=== PATIENT | male | born 1995 | race Caucasian/White ===

== ENCOUNTER 2019-02-06 07:57 | Emergency (ER) | payer OTHER ==
[~2019-02-06] VITALS: Ht 172.7 cm; Wt 78.5 kg
[2019-02-06] MEDS ORDERED: ZOLOFT25 MG PO (08:06)
[2019-02-06 08:26] LABS: HEMATOCRIT 45.5 % (42.0-52.0); HEMOGLOBIN 16.2 gm/dL (14.0-18.0); MCHC 35.6 g/dL (28.0-37.0); MPV 9.7 fl. (7.2-11.1); NUCLEATED RBCS 0 /100WBC; PLATELET COUNT* 232 thou/uL (150-400); RBC 5.22 mil/uL (4.50-6.00); RDW-CV 12.8 % (10.5-14.5)
[2019-02-06 08:37] LABS: CALCIUM 9.3 mg/dL (8.5-10.1); CREATININE 1.1 mg/dL (0.6-1.3); POTASSIUM 3.1 mmol/L (3.5-5.1)
[2019-02-06 08:42] LABS: ALBUMIN 4.5 g/dL (3.4-5.0); TOTAL BILIRUBIN 2.3 mg/dL (<0.1-1.0); TOTAL PROTEIN 8.1 g/dL (6.4-8.2)
[2019-02-06] MEDS ORDERED: CIPROFLOXACIN500 M1 PO (08:49)
[2019-02-06] MEDS ORDERED: ZOFRAN ODT4 MG SUBLING (08:49)
[2019-02-06 09:13] LABS: ABSOLUTE LYMPHOCYTES 1.1 thou/uL (0.8-5.3); ABSOLUTE MONOCYTES 0.6 thou/uL (0.0-1.2); ABSOLUTE NEUTROPHILS 12.3 thou/uL (1.6-8.1); ATYPICAL LYMPHS 1 %; PLATELET ESTIMATE ADEQUATE
[2019-02-06 11:26] VITALS: BP 124/73
== END 2019-02-06 11:27 | disposition home or self-care (01) ==
LOC: M.ERS 07:57
PROVIDERS: Family Medicine
DX: R11.2 Nausea with vomiting, unspecified (principal); F32.9 Major depressive disorder, single episode, unspecified; Z88.8 Allergy status to other drugs, medicaments and biological substances